=== PATIENT | female | born 1980 | race Caucasian/White ===

== ENCOUNTER 2019-08-02 10:27 | Emergency (ER) | payer OTHER ==
[2019-08-02 10:50] LABS: BASOPHILS % (AUTO) 0.6 % (0.0-5.0); EOSINOPHILS % (AUTO) 1.2 % (0.0-8.0); HEMATOCRIT 40.7 % (36-48); MEAN CORPUSCULAR HEMOGLOBIN 28.9 pg (27.0-33.0); MEAN CORPUSCULAR HGB CONC 31.7 g/dL (32.0-36.0); MEAN CORPUSCULAR VOLUME 91.3 fL (79-99); MONOCYTES % (AUTO) 7.8 % (3.0-13.0); NEUTROPHILS % (AUTO) 62.9 % (40.0-77.0); PLATELET COUNT (AUTO) 233 K/uL (130-400); RED BLOOD CELL COUNT(AUTO) 4.46 MIL/uL (4.00-5.50); RED CELL DISTRIBUTION WIDTH 15.1 % (11.0-15.5); WHITE BLOOD COUNT (AUTO) 6.6 K/uL (4.8-10.8)
[2019-08-02 11:01] LABS: APPEARANCE,URINE Clear (CLEAR); BILIRUBIN,URINE Negative (NEGATIVE); COLOR,URINE Yellow (YELLOW); GLUCOSE, URINE (UA) Negative (NEGATIVE); KETONES,URINE Negative (NEGATIVE); LEUKOCYTE ESTERASE ,URINE Moderate (NEGATIVE); NITRATE,URINE Negative (NEGATIVE); OCCULT BLOOD,URINE Negative (NEGATIVE); PH,URINE 6.5 (5.0-8.0); PROTEIN,URINE Negative (NEGATIVE)
[2019-08-02 11:03] LABS: HCG,QUAL RESULT NEGATIVE (NEGATIVE)
[2019-08-02 11:06] LABS: CREATININE 0.7 mg/dL (0.5-1.5); POTASSIUM 3.9 mmol/L (3.5-5.1)
[2019-08-02 11:11] LABS: ALBUMIN 3.8 g/dL (3.5-5.0); BILIRUBIN,TOTAL 0.4 mg/dL (0.2-1.0); TOTAL PROTEIN, SERUM 8.2 g/dL (6.0-8.3)
[2019-08-02] MEDS ORDERED: DiphenhydrAMINE HCL 50 MG/ML VIAL ONE (11:12)
[2019-08-02] MEDS ORDERED: PROCHLORPERAZINE EDISYLATE 10 MG/2 ML VIAL ONE (11:12)
[2019-08-02 11:35] LABS: BACTERIA,URINE Few /HPF (None Seen); RBC,URINE 0-1 /HPF (0-1); TRICHOMONAS,URINE Few /LPF (None Seen)
[2019-08-02] MEDS ORDERED: METRONIDAZOLE 500 MG TABLET ONE (12:57)
== END 2019-08-02 13:14 | disposition home or self-care (01) ==
LOC: EDH 10:27
DX: G43.909 Migraine, unspecified, not intractable, without status migrainosus (principal); A59.8 Trichomoniasis of other sites
CPT/HCPCS: 36415; 70450; 80053; 81001; 81025; 85025; 87088; 96374; 96375; 99284; J0780; J1200

== ENCOUNTER 2023-04-22 04:21 | Emergency (ER) | payer OTHER ==
[~2023-04-22] VITALS: Ht 144.8 cm; Wt 89.8 kg
[2023-04-22 04:39] LABS: APPEARANCE,URINE CLOUDY (CLEAR); BILIRUBIN,URINE NEGATIVE (NEGATIVE); COLOR,URINE YELLOW (YELLOW); GLUCOSE, URINE (UA) NEGATIVE (NEGATIVE); KETONES,URINE NEGATIVE (NEGATIVE); LEUKOCYTE ESTERASE ,URINE 500 Leu/uL (NEGATIVE); NITRATE,URINE NEGATIVE (NEGATIVE); OCCULT BLOOD,URINE NEGATIVE (NEGATIVE); PH,URINE 5.5 (5.0-8.0); PROTEIN,URINE 20 mg/dL (NEGATIVE); UROBILINOGEN,URINE 0.2 mg/dL (0.2-1.0)
[2023-04-22 04:41] LABS: ADD UA MICROSCOPIC YES
[2023-04-22 04:42] LABS: HCG,QUALITATIVE URINE NEGATIVE (NEGATIVE)
[2023-04-22] MEDS: IBUPROFEN 800 MG TAB PO ONE (04:44)
[2023-04-22 05:00] LABS: SARS-CoV-2, RNA, NAAT POSITIVE SARS CoV-2 (NEGATIVE)
[2023-04-22 05:03] LABS: INFLUENZA TYPE A Negative For Type A (NEGATIVE); INFLUENZA TYPE B Negative For Type B (NEGATIVE)
[2023-04-22 05:10] LABS: RAPID GROUP A STREP positive (NEGATIVE)
[2023-04-22 05:33] LABS: MUCUS,URINE RARE LPF (None Seen); SQUAMOUS EPITHELIAL CELL,UR MANY /HPF (0-2); WBC,URINE 51-100 /HPF (0-1)
[2023-04-22 06:21] VITALS: TEMP 98.7
[2023-04-22] MEDS ORDERED: LEVO-70 PO (06:55)
[2023-04-22] MEDS ORDERED: IBUP-2070 PO (06:55)
[2023-04-22] MEDS: LIDOCAINE HCL 1% 20 ML VIAL ONE (07:06)
[2023-04-22] MEDS: DEXAMETHASONE SOD PHOSPHATE 4 MG/ML 1ML VIAL IM ONE (07:06)
[2023-04-22] MEDS: CEFTRIAXONE 1G VIAL IM ONE (07:06)
[2023-04-22 07:25] VITALS: BP 128/76; PULSE 77; RESP 14; O2SAT 99
== END 2023-04-22 07:27 | disposition home or self-care (01) ==
LOC: EDH 04:21
DX: U07.1 COVID-19 (principal); J04.0 Acute laryngitis; N39.0 Urinary tract infection, site not specified; Z90.49 Acquired absence of other specified parts of digestive tract
CPT/HCPCS: 99284; 87635; 87088; 87880; 87804 ×2; 81001; 81025; 96372 ×2; J1100; J0696